=== PATIENT | male | born 1995 | race Hispanic/Latino ===

== ENCOUNTER 2017-06-09 14:58 | Emergency (ER) | payer SELFPAY | END 2017-06-09 17:09 | disposition home or self-care (01) | LOC: ERS 14:58 | DX: H92.03 Otalgia, bilateral (principal) | CPT/HCPCS: 99282 ==

== ENCOUNTER 2017-09-02 13:46 | Emergency (ER) | payer SELFPAY | END 2017-09-02 16:05 | disposition home or self-care (01) | LOC: ERS 13:46 | DX: J02.9 Acute pharyngitis, unspecified (principal) | CPT/HCPCS: 87081; 87430; 99283 ==

== ENCOUNTER 2018-06-01 15:20 | Emergency (ER) | payer SELFPAY | END 2018-06-01 16:05 | disposition home or self-care (01) | LOC: ERS 15:20 | DX: B86 Scabies (principal) | CPT/HCPCS: 99282 ==

== ENCOUNTER 2019-02-27 13:59 | Emergency (ER) | payer SELFPAY ==
[2019-02-27] MEDS ORDERED: Proparacaine 0.5% Opth 15 ML BOT ONE (16:58)
[2019-02-27] MEDS ORDERED: Fluorescein Opthalmic Strip ONE (16:58)
== END 2019-02-27 17:39 | disposition home or self-care (01) ==
LOC: ERS 13:59
DX: T15.02XA Foreign body in cornea, left eye, initial encounter (principal); X58.XXXA Exposure to other specified factors, initial encounter
CPT/HCPCS: 99283

== ENCOUNTER 2019-08-17 13:07 | Emergency (ER) | payer SELFPAY ==
[2019-08-17] MEDS ORDERED: Ketorolac Tromethamine 30 MG/ML VIAL ONE (16:53)
== END 2019-08-17 16:42 | disposition home or self-care (01) ==
LOC: ERS 13:07
DX: L02.211 Cutaneous abscess of abdominal wall (principal)
CPT/HCPCS: 10060; 96372; J1885

== ENCOUNTER 2020-01-27 12:52 | Emergency (ER) | payer OTHER, SELFPAY ==
[2020-01-28 16:49] LABS: SARS-CoV-2 MS2 Positive; SARS-CoV-2 N Gene Negative; SARS-CoV-2 S Gene Negative; SARS-CoV-2 orf1ab Negative
== END 2020-01-27 16:44 | disposition home or self-care (01) ==
LOC: ERS 12:52
DX: Z20.828 Contact with and (suspected) exposure to other viral communicable diseases (principal)
CPT/HCPCS: 87635; 99283; U0003

== ENCOUNTER 2020-09-05 14:38 | Emergency (ER) | payer SELFPAY ==
[2020-09-05 23:32] LABS: SARS-CoV-2 MS2 Positive; SARS-CoV-2 N Gene Negative; SARS-CoV-2 S Gene Negative; SARS-CoV-2 by NAA Not Detected (NotDetected); SARS-CoV-2 orf1ab Negative
== END 2020-09-05 15:30 | disposition home or self-care (01) ==
LOC: ERS 14:38
DX: R50.9 Fever, unspecified (principal); R53.81 Other malaise; R09.81 Nasal congestion; Z20.822 Contact with and (suspected) exposure to COVID-19
CPT/HCPCS: 87635; 99283; U0003; U0005

== ENCOUNTER 2025-05-01 11:52 | Emergency (ER) | payer OTHER | END 2025-05-01 13:19 | disposition home or self-care (01) | LOC: ERS 11:52 | DX: J06.9 Acute upper respiratory infection, unspecified (principal); F17.210 Nicotine dependence, cigarettes, uncomplicated | CPT/HCPCS: 87081; 87428; 87430; 99283 ==